=== PATIENT | male | born 1935 | race Caucasian/White ===

== ENCOUNTER 2019-11-05 07:05 | Day surgery (SDC) | payer OTHER ==
[~2019-11-05] VITALS: Ht 177.8 cm; Wt 95.3 kg
--- NOTE | ~2019-11-05 | O ---
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 POSTOPERATIVE DIAGNOSIS: Bilateral nasolacrimal duct obstruction. PROCEDURE: Bilateral endoscopic balloon dacryocystoplasty with left-sided silicone intubation. SURGEON: Joel Donaldson MD. CHAIR LIFT OPERATOR: None. ANESTHESIA: General. COMPLICATIONS: None. 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 The lacrimal outflow obstruction appears to be the primary problem. He presents today for an endoscopic balloon dilation procedure of his lacrimal outflow tract in order to attempt to improve his tear drainage. Informed consent was obtained to include but not limited to the potential risk for loss of vision, bleeding, infection, failure to improve the problem, the potential need for further surgery or treatment. DESCRIPTION OF PROCEDURE: The patient was taken to the operating room where general anesthesia was administered. The medial canthal area and the lateral wall of the nose on each side were anesthetized with Xylocaine with epinephrine mixed with Marcaine and Wydase. The nose was then packed with Afrin-soaked cottonoids. The patient was subsequently prepped and draped in the usual [facility] [address] [place] [address] OPERATIVE REPORT Name: GOYO PHILLIPS [id number] Admission: 11/05/19 Attend Phys: Joel Donaldson MD Discharge: Date of : 37 Report #: [id number] sterile fashion. The superior and inferior puncta on each side were then dilated with a double-ended punctum dilator. Attention was first turned to the left side where a Stack probe was passed through the superior punctum down the canaliculus and down the stenosed nasolacrimal duct into the inferior meatus. The cottonoids were removed from the nose and the nasal vault inspected. The video endoscope was brought into the field. The inferior turbinate was then deviated medially to allow inspection of the nasal vault. The tract was quite tight, but the Stack probe could be seen passing through the normal nasolacrimal duct. The Stack probe was then removed and the size 2 and then passed with the same visual confirmation of its passage. A 3 x 15 mm LacriCatheter was then lubricated with ophthalmic ointment passed through the superior system down into the nasolacrimal duct into the inferior meatus and confirmed video endoscopically to be in the proper location. It was then inflated to 9 atmospheres for 90 seconds at each of 3 locations. It was then inflated to 9 atmospheres for 60 seconds at each of 3 locations. The tract was very tight. The balloon was then vigorously aspirated as it was withdrawn. The tract irrigated, but did irrigate with a moderate amount of reflux. A silicone tube was then passed through the superior canalicular system in the inferior system and retrieved under the inferior turbinate with a Barragan hook. The tube was secured to itself with 3 square throws and subsequently to the lateral wall of the nose with a 5-0 Prolene suture. Attention was then turned to the right side, where the same procedure was performed. This tract was every bit was tied as the left side was. The tract irrigated with a moderate amount of reflux. Despite multiple attempts an endoscopic manipulation of the inferior turbinate, I was unable to get the Barragan tube passed through the system without passing it first through the inferior turbinate. The decision was made to not put a tube in on that side. The wound was then cleaned and dressed with erythromycin ophthalmic ointment. The patient subsequently transported to the recovery area having tolerated the procedures well with no anesthetic or operative complications being noted. By: [id number] Joel Donaldson MD /nt
[~2019-11-05 07:05] MED LIST: BENAZEPRIL HCL5 MG PO; FINASTERIDE5 MG PO; FLAX SEED OIL1000 MG PO; IBUPROFEN 200200 M1 PO; MULTIPLE VITAM1 EAC4 PO; SIMVASTATIN40 MG PO; TAMSULOSIN HCL0.4 MG PO; TRAMADOL 50 MG50 MG PO; VITAMIN B12-FO1 EAC1 PO; VITAMIN C + RO500 MG PO; VITAMIN D310 MCG PO; ZEGERID 20 MG1 EACH PO
[2019-11-05 08:30] VITALS: BP 107/75
== END 2019-11-05 11:26 | disposition home or self-care (01) ==
LOC: OR 07:05 → TBA 07:05 → OR 07:07
DX: H04.553 Acquired stenosis of bilateral nasolacrimal duct (principal); I10 Essential (primary) hypertension; E78.5 Hyperlipidemia, unspecified; K21.9 Gastro-esophageal reflux disease without esophagitis; Z98.890 Other specified postprocedural states; Z79.899 Other long term (current) drug therapy; Z87.891 Personal history of nicotine dependence
CPT/HCPCS: 50010; 50101; 50261; 50386; 50398; 51777; 56528; 62110; 62900; 64037; 70005